=== PATIENT | male | born 1995 | race Hispanic/Latino ===

== ENCOUNTER 2019-09-01 20:38 | Observation (INO) | payer SELFPAY ==
[2019-09-01 23:47] LABS: Absolute Lymphocytes (CBC) 2.9 K/uL (0.7-4.9); Basophils % 0.7 % (0-1.3); Hematocrit 44.5 % (39.6-49.0); Lymphocytes % 29.9 % (15.3-44.8); MPV 8.1 fL (7.6-11.3); RBC Red Blood Cell Count 5.45 M/uL (4.33-5.43)
[2019-09-01 23:52] LABS: Potassium 3.9 mmol/L (3.5-5.1)
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
[2019-09-02] MEDS: NA CHLORIDE 0.9% 1,000 ML IV SCH ×3 (01:18→17:08)
[2019-09-02] MEDS ORDERED: ACETAMINOPHEN 500 MG TAB PO PRN (01:18)
[2019-09-02] MEDS ORDERED: MORPHINE 4 MG/ML SYR IV PRN (01:18)
[2019-09-02] MEDS ORDERED: ONDANSETRON 4 MG/2 ML VIAL IV PRN (01:18)
[2019-09-02 01:24] VITALS: BMI 34.5
[2019-09-02] MEDS ORDERED: NA CHLORIDE 0.9% 1,000 ML ONE (01:55)
[2019-09-02 08:56] LABS: Absolute Lymphocytes (CBC) 1.7 K/uL (0.7-4.9); Hematocrit 40.7 % (39.6-49.0); Lymphocytes % 29.3 % (15.3-44.8); MPV 8.1 fL (7.6-11.3); RBC Red Blood Cell Count 5.01 M/uL (4.33-5.43)
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
[2019-09-02] MEDS ORDERED: propofoL 200 MG/20 ML VIAL IV ONE (11:50)
[2019-09-02] MEDS ORDERED: MIDAZOLAM HCL 2 MG/2 ML INJ ONE (11:50)
[2019-09-02] MEDS ORDERED: LIDOCAINE 2% MPF 5 ML VIAL ONE (11:51)
[2019-09-02] MEDS ORDERED: ROCURONIUM 50 MG/5 ML VIAL IV ONE (11:51)
[2019-09-02] MEDS ORDERED: FENTANYL CITR 100 MCG/2 ML ONE (11:51)
[2019-09-02] MEDS ORDERED: Ringers Lactate 1,000 ML IV ONE ×2 (11:58→12:43)
[2019-09-02] MEDS ORDERED: CEFAZOLIN SODIUM 1 GM/VIAL ONE (12:21)
[2019-09-02] MEDS ORDERED: Phenylephrine HCl 10 MG/ML 1 ML VIAL ONE (12:45)
[2019-09-02] MEDS ORDERED: NS 0.9% VIAL 10 ML ONE (12:46)
[2019-09-02] MEDS ORDERED: GLYCOPYRROLATE 0.2 MG/ML SYR ONE (12:47)
[2019-09-02] MEDS ORDERED: EPHEDRINE SULF 50 MG/ML VIAL ONE (12:51)
[2019-09-02] MEDS ORDERED: KETOROLAC 30 MG/ML INJ ONE (13:01)
[2019-09-02] MEDS ORDERED: dexAMETHasone 10 MG/ML VIAL ONE (13:01)
[2019-09-02] MEDS ORDERED: ONDANSETRON 4 MG/2 ML VIAL ONE (13:02)
[2019-09-02] MEDS ORDERED: NEOSTIGMINE 1 MG/ML -5 ML ONE (13:14)
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
[2019-09-02] MEDS ORDERED: HYDROCODONE/APAP 7.5/325 MG TAB PO PRN (13:28)
[2019-09-02] MEDS ORDERED: MEPERIDINE HCL 25 MG/0.5 ML ONE (13:41)
[2019-09-02] MEDS: HYDROMORPHONE HCL 1 MG/ML INJ ONE ×4 (13:43→14:10)
[2019-09-02] MEDS ORDERED: PROMETHAZINE INJ 25 MG/ML AMP ONE (13:45)
[2019-09-02] MEDS: CIPROFLOXACIN 400mg IV 400 MG/200 ML BAG IV SCH (20:42)
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
[2019-09-03 01:26] VITALS: O2SAT 93
[2019-09-03] MEDS: NA CHLORIDE 0.9% 1,000 ML IV SCH ×2 (02:07→09:18)
[2019-09-03 08:00] LABS: Absolute Lymphocytes (CBC) 1.7 K/uL (0.7-4.9); Basophils % 0.8 % (0-1.3); Hematocrit 39.4 % (39.6-49.0); Lymphocytes % 21.1 % (15.3-44.8); MPV 8.4 fL (7.6-11.3); RBC Red Blood Cell Count 4.89 M/uL (4.33-5.43)
[2019-09-03 08:05] LABS: BUN Blood Urea Nitrogen 13 mg/dL (7-18); Bicarbonate 22 mmol/L (21-32); Glucose Level 114 mg/dL (74-106); Potassium 4.4 mmol/L (3.5-5.1); Sodium Level 143 mmol/L (136-145)
[2019-09-03] MEDS ORDERED: NA CHLORIDE 0.9% 1,000 ML ONE (08:24)
[2019-09-03] MEDS ORDERED: CIPROFLOXACIN 400mg IV 400 MG/200 ML BAG IV ONE (08:24)
[2019-09-03] MEDS: CIPROFLOXACIN 400mg IV 400 MG/200 ML BAG IV SCH (09:00)
[2019-09-03] MEDS ORDERED: HYDROCODONE/APAP 7.5/325 MG TAB ONE (10:01)
[2019-09-03 11:58] VITALS: BP 109/53; TEMP 99
== END 2019-09-03 11:49 | disposition home or self-care (01) ==
LOC: ER 20:38 → ERHOLD 09-02 00:28 → 2ND 09-02 14:19
PROVIDERS: ADMIT Surgery; ATTEND Surgery
PROC: 0DTJ4ZZ Resection of Appendix, Percutaneous Endoscopic Approach (ICD-10-PCS; principal; 2019-09-02 11:00)
DX: K35.80 Unspecified acute appendicitis (principal); V47.6XXA Car passenger injured in collision with fixed or stationary object in traffic accident, initial encounter; Y92.410 Unspecified street and highway as the place of occurrence of the external cause
CPT/HCPCS: 36415; 70450; 71250; 72125; 80048; 85025; 88304; 99285; G0378; J0690; J0744; J1100; J1170; J2175; J2250; J2370; J2405; J2550; J2704; J2710; J3010; J7030; J7120

== ENCOUNTER 2021-05-06 14:55 | Emergency (ER) | payer SELFPAY ==
[2021-05-06] MEDS ORDERED: IBUPROFEN 400 MG TAB ONE (16:46)
[2021-05-06 17:07] LABS: Absolute Lymphocytes (CBC) 1.1 K/uL (0.7-4.9); Basophils % 0.5 % (0-1.3); Hematocrit 47.5 % (39.6-49.0); Lymphocytes % 23.1 % (15.3-44.8); MPV 8.5 fL (7.6-11.3); RBC Red Blood Cell Count 5.86 M/uL (4.33-5.43)
[2021-05-06 17:14] LABS: Potassium 4.1 mmol/L (3.5-5.1)
[2021-05-06] MEDS ORDERED: ONDANSETRON 4 MG (ODT) TAB ONE (17:18)
[2021-05-06] MEDS ORDERED: ACETAMINOPHEN 325 MG TABLET ONE (17:19)
[2021-05-06 17:45] LABS: Platelet Estimate ADEQ; White Blood Cell Scan OK (OK)
[2021-05-06 17:46] LABS: Blood Morphology Comment NOT SEEN (NOT SEEN)
--- NOTE | 2021-05-06 19:18 | RAD REPORT ---
EXAM DESCRIPTION: RAD - Chest Single View - 05/06/2021 5:59 pm CLINICAL HISTORY: SOB COMPARISON: None TECHNIQUE: AP portable chest image was obtained 05/06/2021 5:59 pm . FINDINGS: Lungs are clear. Heart and vasculature are normal. No measurable pleural effusion and no p neumothorax. No acute bony abnormality seen. No acute aortic findings suspected. IMPRESSION: No acute cardiopulmonary process.
--- NOTE | 2021-05-06 19:42 | ER ---
Nurse's Notes [facility] Name: Donovan Fletcher Age: 26 yrs Sex: Male : 1995 Arrival Date: 05/06/2021 Time: 15:05 Bed DX3 Private MD: Diagnosis: Coronavirus infection, unspecified Presentation: 05/06 16:16 Chief complaint: Patient states: sine Sunday has had a bad headache and the room seems iw like it's spinning, temp 103 now. Coronavirus screen: Client presents with at least one sign or symptom that may indicate coronavirus-19. Ebola Screen: Patient negative for fever greater than or equal to 101.5 degrees Fahrenheit, and additional compatible Ebola Virus Disease symptoms Patient denies exposure to infectious person. Patient denies travel to an Ebola-affected area in the 21 days before illness onset. No symptoms or risks identified at this time. Initial Sepsis Screen: Does the patient meet any 2 criteria? No. Patient's initial sepsis screen is negative. Does the patient have a suspected source of infection? No. Patient's initial sepsis screen is negative. Risk Assessment: Do you want to hurt yourself or someone else? Patient reports no desire to harm self or others. Onset of symptoms was May 05, 2021. 16:16 Method Of Arrival: Ambulatory iw 16:18 Acuity: NANY 3 iw Triage Assessment: 20:18 General: Appears in no apparent distress. Behavior is calm, cooperative. Respiratory: iw Respiratory effort is even, unlabored, Respiratory pattern is regular. Historical: - Allergies: 16:17 No Known Allergies; iw - Immunization history:: Client reports having NOT received the Covid vaccine. - Social history:: Smoking status: Patient reports the use of cigarette tobacco products, Patient uses alcohol, occasionally. Screenin:00 Abuse screen: Denies threats or abuse. Denies injuries from another. Nutritional iw screening: No deficits noted. Tuberculosis screening: No symptoms or risk factors identified. Fall Risk None identified. Assessment: 16:15 General: Appears in no apparent distress. Behavior is calm, cooperative. General: iw Reports fever for feeling ill for. Pain: Complains of pain in head. Neuro: Level of Consciousness is awake, alert, obeys commands, Oriented to person, place, time, situation. Cardiovascular: Patient's skin is warm and dry. Respiratory: Airway is patent Respiratory effort is even, unlabored, Breath sounds are clear bilaterally. Derm: Skin is intact, is healthy with good turgor. 16:52 Reassessment: Patient is alert, oriented x 3, equal unlabored respirations, skin aa5 warm/dry/pink. Reassessment: Unable to obtain IV access at this time, PA notified, will wait on blood lab results before attempting IV access again. . GI: Reports nausea. Vital Signs: 16:16 BP 124 / 65; Pulse 116; Resp 18 S; Temp 103(TE); Pulse Ox 98% on R/A; Weight 104.33 kg; iw Height 5 ft. 6 in. (167.64 cm); 19:58 Pulse 98; Resp 16; Temp 98.0; Pulse Ox 98% on R/A; iw 16:16 Body Mass Index 37.12 (104.33 kg, 167.64 cm) iw ED Course: 15:05 Patient arrived in ED. ds1 16:17 Arm band placed on. iw 16:18 Triage completed. iw 16:21 Juan Carlos Montoya PA is PHCP. [facility] 16:21 Sumeet Aguirre MD is Attending Physician. jmm 16:40 Strep Sent. mh5 16:40 Missed attempt(s): 22 gauge in left in right antecubital area. mh5 16:41 Patient has correct armband on for positive identification. mh5 16:50 Initial lab(s) drawn, by ct, sent to lab. Missed attempt(s): 22 gauge in right aa5 antecubital area. Bleeding controlled, band aid applied, catheter tip intact. 17:58 Chest Single View XRAY In Process Unspecified. EDMS 19:58 Gena Ibanez, RN is Primary Nurse. iw 20:18 No provider procedures requiring assistance completed. Patient did not have IV access iw during this emergency room visit. Administered Medications: 16:23 Drug: Motrin (ibuprofen) 400 mg Route: PO; iw 16:57 Drug: Tylenol 650 mg Route: PO; aa5 16:57 Drug: Zofran (Ondansetron) 4 mg Route: PO; aa5 Outcome: 19:41 Discharge ordered by . jmm 20:18 Discharged to home ambulatory. iw 20:18 Condition: good 20:18 Discharge instructions given to patient, Instructed on discharge instructions, follow up and referral plans. Demonstrated understanding of instructions, follow-up care. 20:19 Patient left the ED. Signatures: Dispatcher [employer] EDJuan Carlos Dill PA PA jmm Sanford, Demi ds1 Gena Ibanez, RN Monica Valentin RN RN umu5 Mulu Good [facility] Corrections: (The following items were deleted from the chart) 16:57 16:40 CORONAVIRUS+MR.LAB.BRZ drawn and sent. [address]
--- NOTE | 2021-05-06 19:42 | EDPHYS ---
Physician Documentation [facility] Name: Donovan Fletcher Age: 26 yrs Sex: Male : 1995 Arrival Date: 05/06/2021 Time: 15:05 Bed DX3 Private MD: ED Physician Sumeet Aguirre HPI: 05/06 16:22 This 26 yrs old Male presents to ER via Ambulatory with complaints of Flu jmm Symptoms, Fever, Congestion. 16:22 The patient or guardian reports cough. Onset: The symptoms/episode began/occurred jmm gradually, 1 day(s) ago. Modifying factors: The symptoms are alleviated by nothing. the symptoms are aggravated by nothing. Associated signs and symptoms: Pertinent positives: diarrhea, rhinorrhea. This is a 26-year-old male no chronic conditions presents emerge department with complaints of fatigue, headache, diarrhea, shortness of breath beginning last night. Patient states his son was recently diagnosed with RSV. Patient is unimmunized for COVID-19. . Historical: - Allergies: 16:17 No Known Allergies; iw - Immunization history:: Client reports having NOT received the Covid vaccine. - Social history:: Smoking status: Patient reports the use of cigarette tobacco products, Patient uses alcohol, occasionally. ROS: 16:22 Cardiovascular: Negative for chest pain, palpitations, and edema, Respiratory: Negative jmm for shortness of breath, cough, wheezing, and pleuritic chest pain. 16:22 Constitutional: Positive for body aches, chills, fatigue, fever. 16:22 Abdomen/GI: Positive for diarrhea. 16:22 Neuro: Positive for headache. 16:22 All other systems are negative. Exam: 16:22 Constitutional: This is a well developed, well nourished patient who is awake, alert, jmm and in no acute distress. Head/Face: atraumatic. Eyes: EOMI, no conjunctival erythema appreciated ENT: Moist Mucus Membranes Neck: Trachea midline, Supple Chest/axilla: Normal chest wall appearance and motion. 16:22 Abdomen/GI: Non distended, soft Back: Normal ROM Skin: General appearance color normal MS/ Extremity: Moves all extremities, no obvious deformities appreciated, no edema noted to the lower extremities Neuro: Awake and alert, normal gait Psych: Behavior is normal, Mood is normal, Patient is cooperative and pleasant 16:22 Cardiovascular: Rate: tachycardic, Rhythm: regular. 16:22 Respiratory: the patient does not display signs of respiratory distress, Respirations: normal, Breath sounds: are clear throughout. Vital Signs: 16:16 BP 124 / 65; Pulse 116; Resp 18 S; Temp 103(TE); Pulse Ox 98% on R/A; Weight 104.33 kg; iw Height 5 ft. 6 in. (167.64 cm); 19:58 Pulse 98; Resp 16; Temp 98.0; Pulse Ox 98% on R/A; iw 16:16 Body Mass Index 37.12 (104.33 kg, 167.64 cm) iw MDM: 16:22 Patient medically screened. [facility] 19:40 Data reviewed: vital signs, nurses notes. Counseling: I had a detailed discussion with hector the patient and/or guardian regarding: the historical points, exam findings, and any diagnostic results supporting the discharge/admit diagnosis, lab results, radiology results, the need for outpatient follow up, to return to the emergency department if symptoms worsen or persist or if there are any questions or concerns that arise at home. ED course: Patient is alert nontoxic in appearance in the ED. Patient states feeling much better. Patient declined Regeneron. Patient was given strict return precautions and advised follow-up with PCP. . 05/06 16:23 Order name: Strep; Complete Time: 19:20 [facility] 05/06 16:23 Order name: CBC with Diff; Complete Time: 17:51 [facility] 05/06 16:23 Order name: BMP; Complete Time: 17:51 [facility] 05/06 16:23 Order name: D-Dimer; Complete Time: 17:51 [facility] 05/06 17:46 Order name: CBC Smear Scan; Complete Time: 17:51 [facility] 05/06 16:23 Order name: Chest Single View XRAY; Complete Time: 19:20 [facility] 05/06 18:27 Order name: SARS-COV-2 RT PCR; Complete Time: 18:27 [facility] 05/06 19:19 Order name: Throat Culture EDMS Administered Medications: 16:23 Drug: Motrin (ibuprofen) 400 mg Route: PO; iw 16:57 Drug: Tylenol 650 mg Route: PO; aa5 16:57 Drug: Zofran (Ondansetron) 4 mg Route: PO; aa5 Disposition: 22:07 Co-signature as Attending Physician, Sumeet Aguirre MD I agree with the assessment and kdr plan of care. Disposition Summary: 05/06/21 19:41 Discharge Ordered Location: Home [facility] Condition: Stable [facility] Diagnosis - Coronavirus infection, unspecified jmm Followup: jmm - With: Private Physician - When: 2 - 3 days - Reason: Recheck today's complaints, Continuance of care, Re-evaluation by your physician Discharge Instructions: - Discharge Summary Sheet [facility] - COVID-19 [facility] Forms: - Work release form [facility] - Medication Reconciliation Form [facility] - Thank You Letter [facility] - Antibiotic Education [facility] - Prescription Opioid Use [facility] Prescriptions: - ivermectin 3 mg Oral tablet - take 6 tablet by ORAL route as directed Please take 6 tabs by mouth now and jmm another 6 tabs by mouth on day 3; 12 tablet; Refills: 0, Product Selection Permitted - ondansetron 4 mg Oral tablet,disintegrating - take 1 tablet by ORAL route every 4 hours; 20 tablet; Refills: 0, Product [facility] Selection Permitted - albuterol sulfate 90 mcg/actuation Inhalation HFA aerosol inhaler - inhale 2 puff by INHALATION route every 4 hours; 1 Pump; Refills: 0, Product [facility] Selection Permitted Signatures: Dispatcher [employer] [facility] Sumeet Aguirre MD MD [facility] Juan Carlos Montoya PA PA [facility] Gena Ibanez, JERRELL ALLAN iw Monica Blackman RN RN aa5 Corrections: (The following items were deleted from the chart) 16:57 16:24 CORONAVIRUS+MR.LAB.BRZ ordered. [facility]
[2021-05-06 20:40] VITALS: BP 124/65; O2SAT 98
[2021-05-06 20:41] VITALS: TEMP 98
== END 2021-05-06 20:19 | disposition home or self-care (01) ==
LOC: ER 14:55
DX: U07.1 COVID-19 (principal); Z72.0 Tobacco use
CPT/HCPCS: 36415; 71045; 80048; 85025; 85379; 87070; 87081; 99283; U0003

== ENCOUNTER 2023-03-25 11:36 | Emergency (ER) | payer OTHER, SELFPAY ==
[2023-03-25] MEDS ORDERED: MECLIZINE HCL 12.5 MG TAB ONE (12:17)
--- NOTE | 2023-03-25 13:07 | ER ---
Nurse's Notes [facility] Name: Donovan Fletcher Age: 27 yrs Sex: Male : 1995 Arrival Date: 03/25/2023 Time: 11:36 Bed 18 Private MD: Diagnosis: Dizziness Presentation: 03/25 11:50 Chief complaint: intermittent dizziness x 3-4 days. Coronavirus screen: At this time, hb the client does not indicate any symptoms associated with coronavirus-19. Ebola Screen: No symptoms or risks identified at this time. Initial Sepsis Screen: Does the patient meet any 2 criteria? No. Patient's initial sepsis screen is negative. Does the patient have a suspected source of infection? No. Patient's initial sepsis screen is negative. Risk Assessment: Do you want to hurt yourself or someone else? Patient reports no desire to harm self or others. Onset of symptoms was March 22, 2023. 11:50 Method Of Arrival: Ambulatory hb 11:50 Acuity: NANY 4 hb Triage Assessment: 11:53 General: Appears in no apparent distress. Behavior is calm, cooperative. Pain: Denies hb pain. Neuro: Level of Consciousness is awake, alert, obeys commands, Oriented to person, place, time, situation. Cardiovascular: Patient's skin is warm and dry. Respiratory: Respiratory effort is even, unlabored, Respiratory pattern is regular, symmetrical. Historical: - Allergies: 11:51 No Known Allergies; hb - Home Meds: 11:51 None [Active]; hb - PMHx: 11:51 None; hb - PSHx: 11:51 Tympanoplasty - Left; Hand - Right; Appendectomy; hb - Immunization history:: Adult Immunizations up to date. - Social history:: Smoking status: Patient denies any tobacco usage or history of. Assessment: 11:53 General: See triage assessment. hb Vital Signs: 11:50 BP 140 / 85; Pulse 73; Resp 16; Temp 98.4; Pulse Ox 100% on R/A; Weight 99.79 kg; hb Height 5 ft. 6 in. ; Pain 0/10; 11:50 Body Mass Index 35.51 (99.79 kg, 167.64 cm) hb 11:50 Pain Scale: Adult hb ED Course: 11:39 Patient arrived in ED. ts1 11:39 Dino Baldwin DO is Attending Physician. ms3 11:51 Triage completed. hb 11:52 Arm band placed on. hb 12:04 Brandy Bullock, RN is Primary Nurse. ll1 13:06 Arjun Lopez MD is Referral Physician. ms3 Administered Medications: 12:14 Drug: Meclizine PO 50 mg Route: PO; ll1 Outcome: 13:06 Discharge ordered by . ms3 13:36 Patient left the ED. 1 Signatures: Bita Tran RN RN Brandy Bullock RN RN ll1 Dino Baldwin DO DO ms3 Airam Patel, PAS PAS ts1
--- NOTE | 2023-03-25 13:08 | EDPHYS ---
Physician Documentation [facility] Name: Donovan Fletcher Age: 27 yrs Sex: Male : 1995 Arrival Date: 03/25/2023 Time: 11:36 Bed 18 Private MD: ED Physician Dino Baldwin HPI: 03/25 13:42 This 27 yrs old Male presents to ER via Ambulatory with complaints of ms3 Dizziness, Fatigue, Headache. 13:42 27-year-old male presents for dizziness that began on morning. Patient ms3 describes the dizziness as the room spinning around him. Patient states the dizziness is worse with movement. Patient denies alleviating factors.. Historical: - Allergies: 11:51 No Known Allergies; hb - Home Meds: 11:51 None [Active]; hb - PMHx: 11:51 None; hb - PSHx: 11:51 Tympanoplasty - Left; Hand - Right; Appendectomy; hb - Immunization history:: Adult Immunizations up to date. - Social history:: Smoking status: Patient denies any tobacco usage or history of. ROS: 13:42 Constitutional: Negative for fever, and chills. ENT: Negative for injury, pain, and ms3 discharge, Neck: Negative for injury, pain, and swelling, Cardiovascular: Negative for chest pain, and palpitations. Respiratory: Negative for shortness of breath, cough, wheezing, and pleuritic chest pain, Abdomen/GI: Negative for abdominal pain, nausea, vomiting, diarrhea, and constipation, MS/Extremity: Negative for injury and deformity, Skin: Negative for injury, rash, and discoloration. 13:42 Neuro: Positive for dizziness. 13:42 All other systems are negative. Exam: 13:42 Constitutional: This is a well developed, well nourished patient who is awake, alert, ms3 and in no acute distress. Head/Face: Normocephalic, atraumatic. Chest/axilla: Normal chest wall appearance and motion. Nontender with no deformity. Cardiovascular: Regular rate and rhythm with a normal S1 and S2. No gallops, murmurs, or rubs. Normal PMI, no JVD. No pulse deficits. Respiratory: Lungs have equal breath sounds bilaterally, clear to auscultation and percussion. No rales, rhonchi or wheezes noted. No increased work of breathing, no retractions or nasal flaring. Abdomen/GI: Soft, non-tender, with normal bowel sounds. No distension or tympany. No guarding or rebound. No evidence of tenderness throughout. Skin: Warm, dry with normal turgor. Normal color with no rashes, no lesions, and no evidence of cellulitis. MS/ Extremity: Pulses equal, no cyanosis. Neurovascular intact. Full, normal range of motion. 13:42 Neuro: Orientation: is normal, to person, place, time \T\ situation. Mentation: is normal, Memory: is normal, Cranial nerves: CN I not tested, CN II- XII are normal as tested, Cerebellar function: is grossly normal, normal finger to nose testing, Motor: is normal, Sensation: is normal, no obvious gross deficits. Vital Signs: 11:50 BP 140 / 85; Pulse 73; Resp 16; Temp 98.4; Pulse Ox 100% on R/A; Weight 99.79 kg; hb Height 5 ft. 6 in. ; Pain 0/10; 11:50 Body Mass Index 35.51 (99.79 kg, 167.64 cm) hb 11:50 Pain Scale: Adult hb MDM: 12:04 Patient medically screened. ms3 13:42 Differential diagnosis: idiopathic dizziness, vertigo. Data reviewed: vital signs, ms3 nurses notes, and as a result, I will discharge patient. I considered the following discharge prescriptions or medication management in the emergency department Medications were administered in the Emergency Department. See MAR. Test considered but Not performed: CT: Patient's symptoms resolved after meclizine, normal neuro exam, normal steady gait.. Counseling: I had a detailed discussion with the patient and/or guardian regarding: the historical points, exam findings, and any diagnostic results supporting the discharge/admit diagnosis, the need for outpatient follow up, to return to the emergency department if symptoms worsen or persist or if there are any questions or concerns that arise at home. Response to treatment: the patient's symptoms have resolved after treatment, No Dizziness, and as a result, I will discharge patient. Special discussion: I discussed with the patient/guardian in detail that at this point there is no indication for admission to the hospital. It is understood, however, that if the symptoms persist or worsen the patient needs to return immediately for re-evaluation. Administered Medications: 12:14 Drug: Meclizine PO 50 mg Route: PO; ll1 Disposition Summary: 03/25/23 13:06 Discharge Ordered Location: Home ms3 Condition: Stable ms3 Diagnosis - Dizziness ms3 Followup: ms3 - With: Arjun Lopez MD - When: 2 - 3 days - Reason: Recheck today's complaints Discharge Instructions: - Discharge Summary Sheet ms3 - Dizziness, [id number] ms3 Forms: - Work release form hb - Family Work Release hb - Medication Reconciliation Form ms3 - Thank You Letter ms3 - Antibiotic Education ms3 - Prescription Opioid Use ms3 - Patient Portal Instructions ms3 Prescriptions: - Meclizine 25 mg Oral Tablet - take 1 tablet by ORAL route every 8 hours As needed; 30 tablet; Refills: 0, ms3 Product Selection Permitted Signatures: Bita Tran RN RN Brandy Bullock RN RN ll1 Dino Baldwin, DO ms3
[2023-03-25 13:41] VITALS: BP 140/85; TEMP 98.4; O2SAT 100
== END 2023-03-25 13:36 | disposition home or self-care (01) ==
LOC: ER 11:36
DX: R42 Dizziness and giddiness (principal)
CPT/HCPCS: 99282; J8597

== ENCOUNTER 2023-11-29 06:12 | Emergency (ER) | payer OTHER ==
--- OUTSIDE RECORDS SUMMARY | 2023-11-29 06:15 | XMS REPORT | Continuity of Care Document ---
Author Name Unknown Address [address] [place] [address] [employer] Address [address] [place] [address] [address] [place] [address] Care Team Providers Care Director [employer] Name Role Phone NICKY GOMEZ Attending Clinician Unavailable Payers Payer Name Policy Type Policy Number Effective Date Expirati on Date Source [facility] [employer] [place] 2 [id number] 2022 00:00:00 Encounters Start Date/Time End Date/Time Encounter Type Admission Type Attending Clinicians Care Facility Care Department Encounter ID Source 2022-11-27 08:45:00 2022-11-27 08:45:00 Outpatient NICKY GOMEZ [id number] [facility]ral
[2023-11-29 06:57] LABS: SARS-CoV-2 Antigen CONTROL BLUE LINE VIS/BG OK; SARS-CoV-2 Antigen Rapid Res Negative (Negative)
[2023-11-29 07:13] LABS: Absolute Eosinophils 0.5 K/uL (0-0.5); Absolute Lymphocytes (CBC) 2.4 K/uL (0.7-4.9); Absolute Monocytes 0.4 K/uL (0.1-1.3); Absolute Neutrophil 2.5 K/uL (1.8-8.0); Basophils % 0.8 % (0-1.3); Eosinophils % 8.2 % (0-4.4); Hematocrit 46.6 % (39.6-49.0); Hemoglobin 15.7 g/dL (13.6-17.9); Lymphocytes % 40.9 % (15.3-44.8); MCH 27.2 pg (27.0-35.0); MCHC 33.7 g/dL (32.0-36.0); MCV 80.8 fL (80-100); MPV 8.4 fL (7.6-11.3); Monocytes % 6.7 % (3.3-12.3); Neutrophils % 43.4 % (41.7-73.7); Nucleated Red Blood Cells % 0.1 % (0-0); Platelets 293 thou/uL (152-406); RBC Red Blood Cell Count 5.77 M/uL (4.33-5.43); Red Cell Distribution Width 13.1 % (12.1-15.2)
[2023-11-29 07:14] LABS: PT Prothrombin Time 11.7 SECONDS (9.5-12.5); Protime INR 1.07
[2023-11-29 07:16] LABS: Specific Gravity > 1.030 (1.005-1.030); Sqamous Epithelial <5 /HPF (None Seen); Urine Bacteria None Seen /HPF (<20); Urine Bilirubin NEGATIVE (Negative); Urine Blood Negative (Negative); Urine Clarity Clear (Clear); Urine Color Yellow (Yellow); Urine Culture Reflex Order NOT NEEDED; Urine Glucose NEGATIVE (Negative); Urine Ketones NEGATIVE (Negative); Urine Micro Reflex YN NO BILL MICROSCOPIC; Urine Mucus Slight /HPF (None Seen); Urine Nitrite NEGATIVE (Negative); Urine Protein TRACE (Negative); Urine RBC <5 /HPF (None Seen); Urine Urobilinogen Normal (Normal); Urine WBC <5 /HPF (<5); Urine pH 5.5 (5.0-7.0)
--- NOTE | 2023-11-29 07:31 | RAD REPORT ---
[facility] CLINICAL HISTORY: feeling bad. Nausea. Fatigue COMPARISON: Chest Single View dated 05/06/2021 TECHNIQUE: Portable AP view of the chest. FINDINGS: The lungs are clear. No pneumothorax or effusion. The cardiomediastinal contours are unre markable. IMPRESSION: No acute cardiopulmonary process.
[2023-11-29 07:35] LABS: ALT/SGPT 16 U/L (16-61); AST/SGOT 9 U/L (15-37); Albumin 4.1 g/dL (3.4-5.0); Albumin/Globulin Ratio 1.1 (1.1-1.8); Alkaline Phosphatase 110 U/L (45-117); BUN Blood Urea Nitrogen 17 mg/dL (7-18); Bicarbonate 25 mEq/L (21-32); Bilirubin Direct 0.1 mg/dL (0-0.2); Bilirubin Indirect, Calculated 0.5 mg/dL (0.2-0.8); Bilirubin Total 0.6 mg/dL (0.2-1.0); Globulin 3.8 g/dL (2.3-3.5); Glomerular Filtration Rate 87 ml/min (=/>90); Glucose Level 107 mg/dL (74-106); Magnesium 2.3 mg/dL (1.6-2.4); Protein, Total 7.9 g/dL (6.4-8.2); Sodium Level 137 mEq/L (136-145)
[2023-11-29 07:39] LABS: Monoscreen NEG (NEG); NT PRO-BNP < 5 pg/mL (<125); Troponin High Sensitivity < 3.0 pg/mL (<58.9)
--- NOTE | 2023-11-29 07:54 | EDPHYS ---
Physician Documentation [facility] Name: Donovan Fletcher Age: 28 yrs Sex: Male : 1995 Arrival Date: 11/29/2023 Time: 06:12 Bed 30 Private MD: ED Physician Claudio Rubio HPI: 11/28 06:22 This 28 yrs old Male presents to ER via Unassigned with complaints of sp4 Vomiting, FATIGUE. 06:48 28-year-old male presents with 2 weeks of fatigue, nausea, vomiting, feeling unwell sp4 overall and persistent thirst. Patient states he does not have any significant past medical history. . Historical: - Allergies: 06:30 No Known Allergies; cm10 - PMHx: 06:30 None; cm10 - PSHx: 06:30 Appendectomy; Hand - Right; Tympanoplasty - Left; cm10 - Immunization history:: Adult Immunizations up to date. - Infectious Disease History:: Denies. - Social history:: Smoking status: Patient denies any tobacco usage or history of. - Family history:: not pertinent. ROS: 06:48 Constitutional: Positive fatigue, positive nausea, positive vomiting, positive feeling sp4 malaise and fatigue 06:48 All other systems are negative, Exam: 06:48 Constitutional: This is a well developed, well nourished patient who is awake, alert, sp4 and in no acute distress. Head/Face: Normocephalic, atraumatic. Eyes: Pupils equal round and reactive to light, extra-ocular motions intact. Lids and lashes normal. Conjunctiva and sclera are not injected. Cornea within normal limits. Periorbital areas with no swelling, redness, or edema. ENT: Nares patent. No nasal discharge, no septal abnormalities noted. Tympanic membranes are normal and external auditory canals are clear. Oropharynx with no redness, swelling, or masses, exudates, or evidence of obstruction, uvula midline. Mucous membranes moist. Neck: Trachea midline, no thyromegaly or masses palpated, and no cervical lymphadenopathy. Supple, full range of motion without nuchal rigidity, or vertebral point tenderness. Chest/axilla: Normal chest wall appearance and motion. Nontender with no deformity. No lesions are appreciated. Cardiovascular: Regular rate and rhythm with a normal S1 and S2. No gallops, murmurs, or rubs. Normal PMI, no JVD. No pulse deficits. Respiratory: Lungs have equal breath sounds bilaterally, clear to auscultation and percussion. No rales, rhonchi or wheezes noted. No increased work of breathing, no retractions or nasal flaring. Abdomen/GI: Soft, with normal bowel sounds. No distension or tympany. No guarding or rebound. No evidence of tenderness throughout. Back: No spinal tenderness. No costovertebral tenderness. Skin: Warm, dry with normal turgor. Normal color with no rashes, no lesions, and no evidence of cellulitis. MS/ Extremity: Pulses equal, no cyanosis. Neurovascular intact. Full, normal range of motion. Neuro: Awake and alert, GCS 15, oriented to person, place, time, and situation. Cranial nerves II-XII grossly intact. Motor strength 5/5 in all extremities. Sensory grossly intact. Psych: Awake, alert, with orientation to person, place and time. Behavior, mood, and affect are within normal limits Vital Signs: 06:29 BP 125 / 85; Pulse 77; Resp 18; Temp 98.5; Pulse Ox 99% on R/A; Weight 104.33 kg (R); cm10 Height 5 ft. 6 in. ; Pain 0/10; 09:14 BP 120 / 78; Pulse 70; Resp 16; Temp 98.6; Pulse Ox 100% on R/A; mg7 06:29 Body Mass Index 37.12 (104.33 kg, 167.64 cm) cm10 06:29 Pain Scale: Adult cm10 Elberta Coma Score: 06:48 Eye Response: spontaneous(4). Motor Response: obeys commands(6). Verbal Response: sp4 oriented(5). Total: 15. MDM: 06:22 Patient medically screened. sp4 06:49 Differential diagnosis: gastritis, viral gastroenteritis, gastroenteritis. Data sp4 reviewed: vital signs, nurses notes, old medical records. Transition of care: After a detail discussion of the patient's case, care is transferred to Claudio Rubio MD. 07:52 Counseling: I had a detailed discussion with the patient and/or guardian regarding the rn historical points, exam findings, and any diagnostic results supporting the discharge/admit diagnosis, lab results, radiology results, the need for outpatient follow up, to return to the emergency department if symptoms worsen or persist or if there are any questions or concerns that arise at home. Special discussion: I discussed with the patient/guardian in detail that at this point there is no indication for admission to the hospital. It is understood, however, that if the symptoms persist or worsen the patient needs to return immediately for re-evaluation. 11/28 06:22 Order name: Influenza Screen (a \T\ B); Complete Time: 07:16 sp4 11/28 06:22 Order name: SARS RAPID; Complete Time: 07:16 sp4 11/28 06:45 Order name: Basic Metabolic Panel; Complete Time: 07:46 sp4 11/28 06:45 Order name: CBC with Diff; Complete Time: 07:16 sp4 11/28 06:45 Order name: LFT's; Complete Time: 07:46 sp4 11/28 06:45 Order name: Magnesium; Complete Time: 07:46 sp4 11/28 06:45 Order name: NT PRO-BNP; Complete Time: 07:46 sp4 11/28 06:45 Order name: PT-INR; Complete Time: 07:16 sp4 11/28 06:45 Order name: Troponin HS; Complete Time: 07:46 sp4 11/28 06:46 Order name: TSH; Complete Time: 07:46 sp4 11/28 06:46 Order name: T4 Free; Complete Time: 07:46 sp4 11/28 06:46 Order name: Kleberg Screen Profile; Complete Time: 07:46 sp4 11/28 06:46 Order name: Urinalysis W/Microscopic; Complete Time: 07:33 sp4 11/28 06:45 Order name: XRAY Chest (1 view); Complete Time: 07:33 sp4 11/28 06:45 Order name: Cardiac monitoring; Complete Time: 07:09 sp4 11/28 06:45 Order name: EKG - Nurse/Tech; Complete Time: 07:26 sp4 11/28 06:45 Order name: IV Saline Lock; Complete Time: 06:57 sp4 11/28 06:45 Order name: Labs collected and sent; Complete Time: 07:06 sp4 11/28 06:45 Order name: O2 Per Protocol; Complete Time: 06:57 sp4 11/28 06:45 Order name: O2 Sat Monitoring; Complete Time: 06:57 sp4 Administered Medications: 08:06 Drug: NS 0.9% IV 1000 ml IV at 1 bolus Per protocol; 1000 mL bolus Route: IV; Rate: 1 mg7 bolus; Site: left antecubital; 09:05 Follow up: IV Status: Completed infusion; IV Intake: 1000ml mg7 08:06 Drug: Ondansetron IVP 4 mg IVP once; over 2 minutes Route: IVP; Site: left antecubital; mg7 09:12 Follow up: Response: Nausea is decreased mg7 Disposition Summary: 11/29/23 07:53 Discharge Ordered Notes: Location: Home rn Problem: an ongoing problem rn Symptoms: are unchanged rn Condition: Stable rn Diagnosis - Nausea rn - Other malaise and fatigue rn Followup: rn - With: Private Physician - When: As needed - Reason: Recheck today's complaints, Re-evaluation by your physician Discharge Instructions: - Discharge Summary Sheet rn - Nausea, Adult rn - Fatigue rn Forms: - Medication Reconciliation Form rn - Thank You Letter rn - Antibiotic trademark attorney - Prescription Opioid Use rn - Patient Portal Instructions rn - Leadership Thank You Letter rn - Work release form aa5 Prescriptions: - ondansetron 4 mg Oral Tablet,disintegrating - take 1 tablet ORAL route every 8 hours As needed; 10 tablet; Refills: 0, rn Product Selection Permitted Signatures: Dispatcher [employer] EDClaudio Warner MD MD rn Potepalov, Sergey, MD MD sp4 Argenis Good, RN RN cm10 Martina Hoyos, RN RN mg7 Corrections: (The following items were deleted from the chart) 06:22 06:22 Influenza Screen (A \T\ B)+BA.LAB.BRZ ordered. EDMS EDMS 06:22 06:22 SARS-COV-2 Antigen Rapid+I.LAB.BRZ ordered. EDMS EDMS 06:46 06:46 BASIC METABOLIC PANEL+C.LAB.BRZ ordered. EDMS EDMS 06:46 06:46 CBC+H.LAB.BRZ ordered. EDMS EDMS 06:46 06:46 HEPATIC FUNCTION+C.LAB.BRZ ordered. EDMS EDMS 06:46 06:46 MAGNESIUM+C.LAB.BRZ ordered. EDMS EDMS 06:46 06:46 PROBNP+C.LAB.BRZ ordered. EDMS EDMS 06:46 PROTIME (+INR)+COAG.LAB.BRZ ordered. EDMS EDMS 46 06:46 Troponin High Sensitivity+C.LAB.BRZ ordered. EDMS EDMS
--- NOTE | 2023-11-29 07:54 | ER ---
Nurse's Notes [facility] Name: Donovan Fletcher Age: 28 yrs Sex: Male : 1995 Arrival Date: 11/29/2023 Time: 06:12 Bed 30 Private MD: Diagnosis: Nausea;Other malaise and fatigue Presentation: 11/28 06:29 Chief complaint: Patient states: Nausea and fatigue X2 weeks, pain that radiates from cm10 jaw to abdomen. Coronavirus screen: Client denies travel out of the [place] in the last 14 days. At this time, the client does not indicate any symptoms associated with coronavirus-19. Ebola Screen: Patient denies travel to an Ebola-affected area in the 21 days before illness onset. No symptoms or risks identified at this time. Initial Sepsis Screen: Does the patient meet any 2 criteria? No. Patient's initial sepsis screen is negative. Does the patient have a suspected source of infection? No. Patient's initial sepsis screen is negative. Risk Assessment: Do you want to hurt yourself or someone else? Patient reports no desire to harm self or others. Onset of symptoms was November 29, 2023. 06:29 Method Of Arrival: Ambulatory cm10 06:29 Acuity: NANY 3 cm10 Historical: - Allergies: 06:30 No Known Allergies; cm10 - PMHx: 06:30 None; cm10 - PSHx: 06:30 Appendectomy; Hand - Right; Tympanoplasty - Left; cm10 - Immunization history:: Adult Immunizations up to date. - Infectious Disease History:: Denies. - Social history:: Smoking status: Patient denies any tobacco usage or history of. - Family history:: not pertinent. Screenin:40 [facility] ED Fall Risk Assessment (Adult) History of falling in the last 3 months, tm6 including since admission No falls in past 3 months (0 pts) Confusion or Disorientation No (0 pts) Intoxicated or Sedated No (0 pts) Impaired Gait No (0 pts) Mobility Assist Device Used No (0 pt) Altered Elimination No (0 pt) Score/Fall Risk Level 0 - 2 = Low Risk Oriented to surroundings, Maintained a safe environment. Abuse screen: Denies threats or abuse. Denies injuries from another. Nutritional screening: No deficits noted. Tuberculosis screening: No symptoms or risk factors identified. Assessment: 06:40 General: Appears in no apparent distress. Behavior is calm, cooperative. Pain: Denies tm6 pain. Neuro: Level of Consciousness is awake, alert, obeys commands, Oriented to person, place, time, situation. Cardiovascular: No deficits noted. Patient's skin is warm and dry. Respiratory: Airway is patent Respiratory effort is even, unlabored, Respiratory pattern is regular, symmetrical. GI: Abdomen is flat, non-distended, Reports nausea, vomiting, since two weeks ago. : No signs and/or symptoms were reported regarding the genitourinary system. EENT: No signs and/or symptoms were reported regarding the EENT system. Derm: No signs and/or symptoms reported regarding the dermatologic system. Musculoskeletal: Reports weakness in general body weakness. 08:06 Reassessment: No changes from previously documented assessment. mg7 09:14 Reassessment: Patient states symptoms have improved. mg7 Vital Signs: 06:29 BP 125 / 85; Pulse 77; Resp 18; Temp 98.5; Pulse Ox 99% on R/A; Weight 104.33 kg (R); cm10 Height 5 ft. 6 in. ; Pain 0/10; 09:14 BP 120 / 78; Pulse 70; Resp 16; Temp 98.6; Pulse Ox 100% on R/A; mg7 06:29 Body Mass Index 37.12 (104.33 kg, 167.64 cm) cm10 06:29 Pain Scale: Adult cm10 [place] Coma Score: 06:48 Eye Response: spontaneous(4). Motor Response: obeys commands(6). Verbal Response: sp4 oriented(5). Total: 15. ED Course: 06:16 Patient arrived in ED. gm2 06:22 Hero Vo MD is Attending Physician. sp4 06:30 Triage completed. cm10 06:31 Arm band placed on Patient placed in an exam room, on a stretcher. cm10 06:33 Bill Salazar RN is Primary Nurse. tm6 06:40 Patient has correct armband on for positive identification. Placed in gown. Bed in low tm6 position. Call light in reach. Side rails up X 1. Provided Education on: plan of care. Client placed on continuous cardiac and pulse oximetry monitoring. NIBP monitoring applied. Pulse ox on. NIBP on. Door closed. Noise minimized. 06:40 SARS RAPID Sent. tm6 06:40 Influenza Screen (a \T\ B) Sent. tm6 06:56 Inserted saline lock: 20 gauge in left antecubital area, using aseptic technique. tm6 07:05 Urinalysis W/Microscopic Sent. tm6 07:06 Basic Metabolic Panel Sent. tm6 07:06 CBC with Diff Sent. tm6 07:06 LFT's Sent. tm6 07:06 Magnesium Sent. tm6 07:06 NT PRO-BNP Sent. tm6 07:06 PT-INR Sent. tm6 07:06 Troponin HS Sent. tm6 07:08 Primary Nurse role handed off by Bill Salazar RN mg7 07:08 Martina Hoyos, JERRELL is Primary Nurse. mg7 07:09 XRAY Chest (1 view) Sent. mg7 07:16 Attending Physician role handed off by Hero Vo MD rn 07:16 Claudio Rubio MD is Attending Physician. rn 07:17 XRAY Chest (1 view) In Process Unspecified. EDMS 07:25 EKG done, by ED staff. aw1 07:26 Door closed. Noise minimized. Lights dimmed. Warm blanket given. aw1 09:03 IV discontinued, intact, bleeding controlled, No redness/swelling at site. Pressure aw1 dressing applied. 09:21 No provider procedures requiring assistance completed. mg7 09:21 IV discontinued, intact. mg7 Administered Medications: 08:06 Drug: NS 0.9% IV 1000 ml IV at 1 bolus Per protocol; 1000 mL bolus Route: IV; Rate: 1 mg7 bolus; Site: left antecubital; 09:05 Follow up: IV Status: Completed infusion; IV Intake: 1000ml mg7 08:06 Drug: Ondansetron IVP 4 mg IVP once; over 2 minutes Route: IVP; Site: left antecubital; mg7 09:12 Follow up: Response: Nausea is decreased mg7 Medication: 06:40 VIS not applicable for this client. tm6 Intake: 09:05 IV: 1000ml; Total: 1000ml. mg7 Outcome: 07:53 Discharge ordered by MD. rn 09:14 Discharged to home ambulatory, with family, mg7 09:14 Condition: good 09:14 Discharge instructions given to patient, 09:16 Patient left the ED. mg7 Signatures: Dispatcher [employer] EDClaudio Warner MD MD rn Potepalov, Sergey, MD MD sp4 Argenis Good RN RN cm10 Theresa Blunt 1 Karen Frey 2 Bill Salazar RN RN tm6 Martina Hoyos RN RN mg7
[2023-11-29] MEDS ORDERED: ONDANSETRON 4 MG/2 ML VIAL ONE (08:01)
[2023-11-29] MEDS ORDERED: NA CHLORIDE 0.9% 1,000 ML ONE (08:01)
[2023-11-29 09:34] VITALS: BP 120/78; TEMP 98.6; O2SAT 100
--- NOTE | 2023-11-30 11:56 | EKG ---
Test Date: 2023-11-29 Test Time: 07:21:56 Material Spreader: MARGE MEASUREMENT RESULTS: Intervals: Rate: 69 ME: 134 QRSD: 88 QT: 354 QTc: 379 [facility]: P: 23 ME: 134 QRS: 79 T: 64 INTERPRETIVE STATEMENTS: Normal sinus rhythm Normal ECG Compared to ECG 09/28/2012 20:37:34 No significant changes Electronically Signed On 11-30-23 11:54:13 CDT by Steven Pettit
== END 2023-11-29 09:16 | disposition home or self-care (01) ==
LOC: ER 06:12
DX: R11.0 Nausea (principal); R53.81 Other malaise; R53.83 Other fatigue; Z11.52 Encounter for screening for COVID-19
CPT/HCPCS: 96361; 93005; 85025; 81001; 80048; 36415; 83735; 86308; 85610; 80076; 84443; 84484; 84439; 83880; 87804 ×2; 71045; 96374; 99284; 87811; J2405; J7030